=== PATIENT | female | born 1940 | race Caucasian/White ===

== ENCOUNTER → 2025-02-04 | Outpatient (CLI) | payer MEDICARE, SELFPAY ==
--- NOTE | 2025-02-04 14:52 | RAD_ITS ---
PROCEDURE: PELVIS 1 OR 2 VIEWS 02/04/2025 REASON FOR EXAM: PAIN TECHNIQUE: PELVIS 1 OR 2 VIEWS FINDINGS: No evidence acute fracture or dislocation. Mild degenerative changes of the bilateral hips. Partially degenerative changes of the spine. RAD/Pelvis 1 or 2 Views IMPRESSION: Osteoarthrosis. Reading Location: [id number]
[2025-02-04 18:14] LABS: Hematocrit 34.6 % (37-47); Hemoglobin 11.2 g/dL (12.0-15.0); Immature Granulocytes Count 0.070 X10^3/uL (0.0-0.0); Mean Corp Hgb Conc 32.4 g/dL (32-36); Mean Corpuscular Volume 88.9 fL (81-99); Mean Platelet Vol. 9.1 fl (6.2-12.0); NRBC Flagged by Analyzer 0 % (0-5); Platelet Count 501 K/mm3 (150-450); RBC Distribution Width CV 15.1 % (11.6-14.6); RBC Distribution Width SD 48.8 fl (35.1-43.9); Red Blood Count 3.89 M/mm3 (4.2-5.4); White Blood Count 11.4 K/mm3 (4.4-11.0)
[2025-02-04 19:24] LABS: AST(SGOT) 18 U/L (<=31); Alanine Aminotransfer ALT/SGPT 13 U/L (<=34); Albumin, Serum 3.7 g/dL (3.4-4.8); Alkaline Phosphatase 91 U/L (35-104); Anion Gap 16 (5-15); BUN 19 mg/dL (4-19); BUN/Creat Ratio 29.5 RATIO (10-20); Calcium,Total 9.3 mg/dL (7.6-11.0); Carbon Dioxide 21.2 mmol/L (21.0-32.0); Chloride 98 mmol/L (98-108); Globulin 3.2 g/dL (2.2-4.2); Glucose 117 mg/dL (70-99); Hepatitis B Surface Antigen Nonreactive (Nonreactive); Hepatitis C Antibody Nonreactive (Nonreactive); Potassium 4.4 mmol/L (3.3-5.1)
[2025-02-04 19:56] LABS: CRP 77.10 mg/L (0.0-3.0)
[2025-02-06 13:08] LABS: ANTINUCLEAR ANTIBODIES DIRECT Negative (Negative)
[2025-02-06 18:08] LABS: QNTFERON TB Mitogen Value 0.69 IU/mL (.); QNTFERON TB Nil Value 0.02 IU/mL (.); QNTFERON TB1+ Ag Value 0.02 IU/mL (.); QNTFERON TB2+ Ag Value 0.02 IU/mL (.); QNTIFERON TB Positive Criteria Negative (Negative)
== END | disposition home or self-care (01) ==
LOC: MTLAB 14:48
PROVIDERS: Referring Provider Internal Medicine Rheumatology; Visit Provider Internal Medicine Rheumatology
DX: M06.4 Inflammatory polyarthropathy (principal); M17.0 Bilateral primary osteoarthritis of knee; M51.369 Other intervertebral disc degeneration, lumbar region without mention of lumbar back pain or lower extremity pain; M47.897 Other spondylosis, lumbosacral region
CPT/HCPCS: 36415; 72170; 80053; 85025; 85652; 86038; 86140; 86200; 86431; 86480; 86706; 86803; 87340